=== PATIENT | female | born 1965 | race Caucasian/White ===

== ENCOUNTER 2023-05-18 10:33 | Day surgery (SDC) | payer OTHER ==
--- NOTE | 2023-05-17 12:38 | EKG ---
Test Date: 2023-05-16 Test Time: 14:17:25 Rehabilitation Program Manager: MARIPOSA MEASUREMENT RESULTS: Intervals: Rate: 70 CA: 152 QRSD: 122 QT: 504 QTc: 544 [place]: P: 87 CA: 152 QRS: -62 T: 220 INTERPRETIVE STATEMENTS: Normal sinus rhythm Left axis deviation Septal infarct, age undetermined ST & T wave abnormality, consider inferior ischemia ST & T wave abnormality, consider anterolateral ischemia Abnormal ECG No previous ECG available for comparison Electronically Signed On 05-17-23 12:36:30 CDT by Vernon Malloy
[2023-05-18] MEDS ORDERED: CEFOXITIN SODIUM 1 GM/VIAL ONE (10:53)
[2023-05-18] MEDS ORDERED: Ringers Lactate 1,000 ML IV ONE (10:53)
[2023-05-18] MEDS ORDERED: FENTANYL CITR 100 MCG/2 ML ONE ×2 (11:17→13:39)
[2023-05-18] MEDS ORDERED: LIDOCAINE 2% MPF 5 ML VIAL ONE (11:17)
[2023-05-18] MEDS ORDERED: ROCURONIUM 50 MG/5 ML VIAL IV ONE (11:17)
[2023-05-18] MEDS ORDERED: propofoL 200 MG/20 ML VIAL IV ONE (11:17)
[2023-05-18 12:41] VITALS: O2SAT 100
[2023-05-18] MEDS ORDERED: MIDAZOLAM HCL 2 MG/2 ML INJ ONE (12:44)
[2023-05-18] MEDS ORDERED: dexAMETHasone 10 MG/ML VIAL ONE (13:07)
[2023-05-18] MEDS: BUPIVACAINE 0.25% PF 30 ML VIAL ONE ×2 (13:13→13:23)
--- NOTE | 2023-05-18 13:52 | P.OP ---
Preoperative diagnosis: Chronic Cholecystitis Postoperative diagnosis: Chronic Cholecystitis Primary procedure: Laparoscopic Cholecystecomy with ICG Anesthesia: GETA + Local Estimated blood loss: < 5cc Specimen: Gallbladder Findings: Chronic Cholecystitis Complications: None Transferred to: Recovery Room Condition: Good
[2023-05-18] MEDS ORDERED: GLYCOPYRROLATE 0.2 MG/ML SYR ONE (13:53)
[2023-05-18] MEDS ORDERED: NEOSTIGMINE 1 MG/ML -10 ML VIAL ONE (13:54)
[2023-05-18] MEDS ORDERED: KETOROLAC 30 MG/ML INJ ONE (13:58)
[2023-05-18] MEDS ORDERED: MEPERIDINE HCL 25 MG/ML SYR ONE (14:54)
[2023-05-18] MEDS ORDERED: HYDROCODONE/APAP 5/325 MG TAB ONE (15:34)
[2023-05-18 16:00] VITALS: BP 139/64; TEMP 97.3
--- NOTE | 2023-05-18 23:55 | OP ---
Date of Procedure: 05/18/2023 Surgeon: Jonathan Luz MD, Preoperative Diagnosis: Chronic cholecystitis. Postoperative Diagnosis: Chronic cholecystitis. Procedure Performed: Laparoscopic cholecystectomy with indocyanine green cholangiography. Anesthesia: General endotracheal plus local with 0.25% Marcaine. Estimated Blood Loss: 5 cc. Specimen: Gallbladder. Findings: Chronic cholecystitis. Complication: None. Disposition: The patient transferred to recovery room in good condition. Procedure In Detail: After informed consent was obtained, the patient was brought to the operating r oom, prepped and draped in the usual sterile fashion after adequate anesthesia was achieved. I anest hetized the supraumbilical area with 0.25% Marcaine and sharply incised. A 5 mm trocar was placed un joel direct vision without evidence of complication. Insufflation was obtained to 15 mmHg at this faiza e. There was no injury to vital structures upon entry into the abdomen. 2 additional trocars were p laced, 1 in the epigastrium, 1 in the right upper quadrant. Both of these similarly anesthetized and sharply incised. A 5 mm trocar was placed under direct visualization without evidence of complicati on. The umbilical trocar was then upsized to a 12 mm under direct visualization without evidence of complication. Patient was positioned head up right-side up position. Ratcheted grasper was used to grasp the gallbladder and placed towards the patient's right shoulder. Dissection continued down to remove some . Significant inflammatory changes were noted on the anterior surface of the g allbladder. Electrocautery was used to take down omental attachments from the anterior surface of th e gallbladder as well as from the stomach, which was in close apposition of the gallbladder using gen tle dissection, blunt dissection and combination of electrocautery as well. After this was mobilized completely, I was able to skeletonize 2 structures identified as both cystic duct and cystic artery. These structures circumferentially dissected free and visualized and the critical view of safety wa s obtained at this point. I then performed ICG cholangiography confluence of the common d uct and cystic duct junction and finding it to be in an appropriate anatomic position. I then placed double titanium clips on the proximal side and singly on the distal side of both cystic duct and cys tic artery. These structures were then ligated using Endo Neyda. The gallbladder was then removed from the hepatic fossa without evidence of complication, sent off for pathologic examination after be ing placed in EndoCatch bag and removed through the umbilical trocar. After reinsufflation was obtai jayda, the area was copiously irrigated multiple times. I inspected the area with ICG cholangiography once again to see that no bile leakage was present. No additional hemostat was required. At this po int, the patient was positioned back in neutral position. The remaining effluent suctioned out. The umbilical trocar site was closed using a Alden-Madeleine suture passer with 0 Vicryl in interrupted fashion to reapproximate the tissues. The abdomen was completely desufflated under direct visualizat ion without evidence of complication. The remaining trocars were removed. All skin incisions were t hen copiously irrigated and closed with a 4-0 Monocryl in a running fashion. Dermabond placed over t op. The patient tolerated the procedure well without evidence of complication and transferred to PAC U in good condition. All counts were correct at the end of the case. VENECIA/ELENA Voice ID: [id number] Report ID: [id number]
== END 2023-05-18 15:50 | disposition home or self-care (01) ==
LOC: OR 10:33
PROVIDERS: ATTEND Surgery
PROC: BF50200 Other Imaging of Bile Ducts using Fluorescing Agent, Indocyanine Green Dye, Intraoperative (ICD-10-PCS; 2023-05-18)
PROC: 0FT44ZZ Resection of Gallbladder, Percutaneous Endoscopic Approach (ICD-10-PCS; principal; 2023-05-18 13:15)
DX: K80.10 Calculus of gallbladder with chronic cholecystitis without obstruction (principal); E78.00 Pure hypercholesterolemia, unspecified; Z88.0 Allergy status to penicillin; Z88.2 Allergy status to sulfonamides
CPT/HCPCS: 93005; 88304; 47605; J2704; J2710; J2001; J2250; J3010 ×2; J1100; J2175; J0694; J7120